=== PATIENT | male | born 1990 | race Caucasian/White ===

== ENCOUNTER 2021-03-18 19:21 | Emergency (ER) | payer SELFPAY ==
[2021-03-18] MEDS ORDERED: Diphtheria,Pertussis(Acell),Tetanus Vaccine 0.5 ML Syringe IM ONE (19:58)
[2021-03-18] MEDS ORDERED: Lidocaine 1% PF 2 ML SDV INJECT ONE (19:58)
[2021-03-18] MEDS ORDERED: Amoxicillin/Clavulanate K 875-125 MG Tab PO ONE (20:01)
--- NOTE | 2021-03-18 20:01 | EDM.PDOC ---
ED HPI GENERAL MEDICAL PROBLEM - General Chief Complaint: Head Injury Stated Complaint: HEAD LACERATION Time Seen by Provider: 03/18/21 19:24 Source of Information: Reports: Patient History Limitations: Reports: No Limitations - History of Present Illness INITIAL COMMENTS - FREE TEXT/NARRATIVE: HISTORY AND PHYSICAL: History of present illness: Patient is a 30-year-old male who presents to the emergency room with complaints of laceration to the right eyebrow. Patient was playing basketball with some other teammates when he was hit in the face, he is unsure if it was a tooth or an elbow. He has a 2.5 cm laceration through the right eyebrow. He has no visual changes, headache or loss of consciousness. He offers no systemic complaints. He is unsure of his last tetanus update. Review of systems: As per history of present illness and below otherwise all systems reviewed and negative. Past medical history: As per history of present illness and as reviewed below otherwise noncontributory. Surgical history: As per history of present illness and as reviewed below otherwise noncontributory. Social history: See social history for further information Family history: As per history of present illness and as reviewed below otherwise noncontributory. Physical exam: General: Well developed and well nourished. Alert and orientated x 3. Nontoxic in appearance and in no acute distress. Vital signs are stable and have been reviewed by me. Nursing notes were reviewed. HEENT: 2.5 cm laceration through the right eyebrow, nontender, normocephalic, pupils equal and reactive bilaterally, negative for conjunctival pallor or scleral icterus, no ocular impingement, mucous membranes moist, TMs normal bilaterally, throat clear, neck supple, nontender, trachea midline. No drooling or trismus noted. No meningeal signs. No hot potato voice noted. Lungs: Clear to auscultation bilaterally. No wheezes, rales, or rhonchi. Chest nontender. Normal work of breathing, no accessory muscles used. Heart: S1S2, regular rate and rhythm without overt murmur, gallops, or rubs. No JVD. No peripheral edema Abdomen: Soft, nondistended, nontender. Normoactive bowel sounds. Negative for masses or costovertebral tenderness. Skin: 2.5cm through the right eyebrow, not involving the upper lid. Remaining skin is intact, warm, dry. No lesions or rashes noted. Hematologic: No petechiae or purpra. Mucosa appropriate color and normal nail bed color and refill. Extremities: Atraumatic, moves all extremities per self without difficulty or deficits, negative for cords or calf pain. Neurovascular unremarkable. Neuro: Awake, alert, oriented. Cranial nerves II through XII unremarkable. Cerebellum unremarkable. Motor and sensory unremarkable throughout. Exam nonfocal. Psychiatric: Mood and affect are appropriate. Normal thought process. Answering questions appropriately. Please note that the patient was seen and evaluated during the 2019 SARS-CoV-2 novel coronavirus pandemic period. Community viral transmission is ongoing at time of this encounter and the emergency department is operating under pandemic response procedures. Medical Decision Making: Patient denies any loss of consciousness, we discussed head CT in decided against it at this time. He has no neurological symptoms. Is unsure of his last tetanus update. 1% lidocaine was used to anesthetize the area. Chlorhexidine and wound wash was used to thoroughly cleanse and irrigate the site. 5-0 nylon, #5 interrupted sutures were placed usual and customary procedures were followed. Since he is unsure if this was a human tooth/mouth will place on Augmentin given his first dose here. I have talked with the patient about today's findings, in addition to providing specific details for plan of care. Reassessment at the time of disposition demonstrates that the patient is in no acute distress. The patient is stable for discharge, counseling was provided and we discussed in great detail signs and symptoms that would prompt them to return to the Emergency Department. Medication, follow up and supportive care measures were reviewed and discussed. Voices understanding and is agreeable to plan of care. Denies any further questions or concerns at this time. Diagnostics: None Therapeutics: Tdap, lidocaine, Augmentin Prescription: Augmentin Impression: Laceration Plan: 1. Keep the area clean and dry. Continue to monitor for signs of infection. Sutures to be removed in 7-10 days. Take the Augmentin twice daily over the next 5 days to prevent infection from occurring. 2. Tylenol and/or ibuprofen as needed for pain management. 3. Please follow-up with your primary care provider for suture removal, or return if you are unable to schedule an appointment. If your symptoms should worsen, new symptoms develop or any of the signs and symptoms we discussed should arise please return to the emergency room or call 911 (if needed). Definitive disposition and diagnosis as appropriate pending reevaluation and review of above. Right Face/Facial Pain Score (Numeric/FACES): 2 - Related Data Allergies Allergy/AdvReac Type Severity Reaction Status Date / Time No Known Allergies Allergy Verified 03/18/21 19:42 Home Meds: Home Meds Amoxicillin/Clavulanate K [Augmentin 875-125 MG] 1 tab PO BID 5 Days #10 tablet 03/18/21 [Rx] Past Medical History - Past Health History Medical/Surgical History: Denies Medical/Surgical History Social & Family History - Family History Family Medical History: No Pertinent Family History - Caffeine Use Caffeine Use: Reports: None - Recreational Drug Use Recreational Drug Use: No ED ROS GENERAL - Review of Systems Review Of Systems: Comprehensive ROS is negative, except as noted in HPI. ED EXAM, HEAD INJURY - Physical Exam Exam: See Below (See dictation) ED LACERATION/WOUND & ANTOINETTE PROC - Laceration/Wound Repair Right eyebrow Lac/wound length in cm: 2.5 Appearance: Subcutaneous, Linear, Clean Distal NVT: Neuro & Vascular Intact, No Tendon Injury Anesthetic Type: Local Local Anesthesia - Lidocaine (Xylocaine): 1% Plain Local Anesthetic Volume: 2cc Skin Prep: Chlorhexidine (Hibiciens), Saline Saline irrigation (cc's): 500 Exploration/Debridement/Repair: Wound Explored, In a Bloodless Field, Explored to Base, No Foreign Material Found Closed with: Sutures Suture Size: 5-0 # of Sutures: 5 Suture Type: Nylon, Interrupted, Simple Drain Placement: No Sterile Dressing Applied: Provider Tetanus Status Addressed: Yes Complications: No Course - Vital Signs Last Recorded V/S: Last Vital Signs Temp 98.3 F 03/18/21 19:38 Pulse 81 03/18/21 19:38 Resp 18 03/18/21 19:38 BP 142/83 H 03/18/21 19:38 Pulse Ox 96 03/18/21 19:38 - Orders/Labs/Meds Orders: Active Orders 24 hr Category Date Time Status Vaccine to be Administered/Admin Charge [RC] ASDIRECTED Care 03/18/21 19:59 Ordered Meds: Medications Discontinued Medications Generic Name Dose Route Start Last Admin Trade Name Freq PRN Reason Stop Dose Admin Amoxicillin/Clavulanate Potassium 1 tab 03/18/21 20:01 03/18/21 20:09 Amoxicillin/Clavulanate K 875-125 Mg Tab PO 03/18/21 20:02 1 tab ONETIME ONE Administration Diphtheria/Tetanus/Acell Pertussis 0.5 ml 03/18/21 19:58 03/18/21 20:09 Diphtheria,Pertussis(Acell),Tetanus Vaccine 0.5 Ml Syringe IM 03/18/21 19:59 0.5 ml .ONCE ONE Administration Lidocaine HCl 2 ml 03/18/21 19:58 03/18/21 20:09 Lidocaine 1% Pf 2 Ml Sdv INJECT 03/18/21 19:59 2 ml ONETIME ONE Administration Departure - Departure Time of Disposition: 20:24 Disposition: Home, Self-Care 01 Clinical Impression: Laceration - Discharge Information Prescriptions: Amoxicillin/Clavulanate K [Augmentin 875-125 MG] 1 tab PO BID 5 Days #10 tablet Instructions: Laceration Care, Adult, [id number] Referrals: PCP,None [Primary Care Provider] - Forms: ED Department Discharge Additional Instructions: The following information is given to patients seen in the emergency department who are being discharged to home. This information is to outline your options for follow-up care. We provide all patients seen in our emergency department with a follow-up referral. The need for follow-up, as well as the timing and circumstances, are variable depending upon the specifics of your emergency department visit. If you don't have a primary care physician on staff, we will provide you with a referral. We always advise you to contact your personal physician following an emergency department visit to inform them of the circumstance of the visit and for follow-up with them and/or the need for any referrals to a consulting specialist. The emergency department will also refer you to a specialist when appropriate. This referral assures that you have the opportunity for follow-up care with a specialist. All of these measure are taken in an effort to provide you with optimal care, which includes your follow-up. Under all circumstances we always encourage you to contact your private physician who remains a resource for coordinating your care. When calling for fo llow-up care, please make the office aware that this follow-up is from your recent emergency room visit. If for any reason you are refused follow-up, please contact the [facility] Emergency Department at and asked to speak to the emergency department charge nurse. [facility] [address] [place] [address] [facility] [address] [place] [address] Thank you for choosing the [facility] emergency department in [place] for your medical needs today. It was a pleasure caring for you. Today you were seen in the emergency department for facial laceration. 1. Keep the area clean and dry. Continue to monitor for signs of infection. Sutures to be removed in 7-10 days. Take the Augmentin twice daily over the next 5 days to prevent infection from occurring. 2. Tylenol and/or ibuprofen as needed for pain management. 3. Please follow-up with your primary care provider for suture removal, or return if you are unable to schedule an appointment. If your symptoms should worsen, new symptoms develop or any of the signs and symptoms we discussed should arise please return to the emergency room or call 911 (if needed). Sepsis Event Note (ED) - Focused Exam Vital Signs: Vital Signs Temp Pulse Resp BP Pulse Ox 03/18/21 19:38 98.3 F 81 18 142/83 H 96 - My Orders Last 24 Hours: My Active Orders 03/18/21 19:59 Vaccine to be Administered/Admin Charge [RC] ASDIRECTED - Assessment/Plan Last 24 Hours: My Active Orders 03/18/21 19:59 Vaccine to be Administered/Admin Charge [RC] ASDIRECTED
== END 2021-03-18 20:35 | disposition home or self-care (01) ==
LOC: MW.ED 19:21
DX: S01.111A Laceration without foreign body of right eyelid and periocular area, initial encounter (principal); Z23 Encounter for immunization; W22.8XXA Striking against or struck by other objects, initial encounter; Y93.67 Activity, basketball
CPT/HCPCS: 12011; 90471; 90715; 99282; A9270